=== PATIENT | female | born 1950 | race Caucasian/White ===

== ENCOUNTER 2021-02-27 12:41 | Outpatient (CLI) | payer MEDICARE, BC, SELFPAY ==
--- NOTE | 2021-02-27 12:47 | USCV_ITS ---
Fátima Hodge Age: 70 Gender: F : 1950 Exam Date: 02/27/2021 13:09 Ordering Phys: Faraz Ackerman Technologist: Álvaro Westfall Director Clinical Research [place] [facility] [place]: CLAUDICATION RIGHT LEFT Brachial 121.00 mmHg Brachial 112.00 mmHg Pressure (mmHg) Waveform Pressure (mmHg) Waveform 153.00 MOSAIC WORKER 150.00 149.00 DPA 144.00 1.26 Ankle/Brachial Index 1.24 103.00 Pre-Exercise Toe Pressure 115.00 0.85 Pre-Exercise Toe/Brachial Index 0.95 FINDINGS Normal resting ABIs bilaterally Normal resting TBIs bilaterally CONCLUSIONS No evidence of any significant arterial obstruction, based on the above findings. Dr Masha Musa MD [facility] (Electronically Signed) Final Date: 08 March 2021 06:46 S
== END 2021-02-27 12:42 | disposition home or self-care (01) ==
PROVIDERS: PCP Family Medicine; Visit Provider Family Medicine
DX: I73.9 Peripheral vascular disease, unspecified (principal); M79.10 Myalgia, unspecified site
CPT/HCPCS: 93922

== ENCOUNTER 2021-05-22 09:23 | Outpatient (CLI) | payer MEDICARE, BC, SELFPAY ==
--- NOTE | 2021-05-22 09:34 | CT_ITS ---
WS: [id number] CT NECK WITH CONTRAST HISTORY: Dysphagia. Chronic sinusitis. TECHNIQUE: Contiguous 5 mm axial images are performed through the neck with intravenous contrast. Sag ittal and coronal reformats are also submitted. All CT scans at [facility] use at least one o f these dose optimization techniques: automated exposure control; mA and/or kV adjustment per patient size (includes targeted exams where dose is matched to clinical indication); or iterative reconstruc tion. CONTRAST: CONTRAST: Omnipaque 300; 95 mL IV. DLP: 345.61 mGy.cm COMPARISON: None available. Patient swallowed in the middle of this examination. Nasopharynx, oropharynx, hypopharynx and larynx are unremarkable. No soft tissue masses or abnormal e nhancement. Torus tubarius and fossa of Rosenmuller and parapharyngeal fat are normal. No significant lymphadenopathy is identified. Bilateral thyroid nodules. Largest nodule measures 10 mm on the LEFT. Straightening and slight reversal the normal cervical lordosis. Disc space narrowing and desiccation most significant at C4-5 and C5-6. Visualized portions of the skull base demonstrate no abnormalities. Orbits and globes are within norm al limits. No soft tissue masses. Mild mucoperiosteal thickening in the sinus cavities. No air-fluid levels. Mastoid air cells are clear. CT/CT neck w con* [id number] IMPRESSION: 1. No neck mass or adenopathy. 2. Small bilateral thyroid nodules.
--- NOTE | 2021-05-22 09:34 | FL_ITS ---
WS: [id number] ESOPHAGRAM WITH FLUOROSCOPY HISTORY: Chronic sinusitis and dysphagia. COMPARISON: None available. FLUOROSCOPY TIME: 0.6 minutes. Esophagus and swallowing function: Patient swallowed the barium mixture without difficulty. No mucosa l lesions are identified. Osteophytes and soft tissue encroach into the posterior esophagus at the C6 -7 level. There is mild deviation of the esophagus but no significant limitation of swallowing. Mild cricopharyngeal spasm at the C5-6 level. Gastroesophageal reflux: None. Hiatal hernia: Intermittently visualized. FL/FL barium swallow [id number] IMPRESSION: 1. Small osteophytes and soft tissue encroach into the posterior esophagus at the C6-7 level. 2. Mild intermittent cricopharyngeal spasm. 3. No flow-limiting strictures are identified.
[2021-05-22 10:35] LABS: Blood Urea Nitrogen 13 mg/dL (8-23)
[2021-05-22] MEDS: iohexol 300 mg/mL 100 mL Btl IV (10:53)
== END 2021-05-22 09:24 | disposition home or self-care (01) ==
LOC: RAD 09:30
PROVIDERS: PCP Family Medicine; Visit Provider Specialist
DX: J32.8 Other chronic sinusitis (principal); E04.2 Nontoxic multinodular goiter; M25.78 Osteophyte, vertebrae
CPT/HCPCS: 70491; 74220; 82565; 84520

== ENCOUNTER 2021-06-05 10:25 | Outpatient (CLI) | payer MEDICARE, BC, SELFPAY ==
--- NOTE | 2021-06-05 13:58 | ECG_ITS ---
[facility] Test Date: 2021-06-05 Pat Name: Fátima Hodge Department: Room: Gender: Female Cook Ship: : 1950 Requested By: Thanh Pastor Order Number: [id number] Rojas MD: Masha Musa M.D. Measurements Intervals [place] Rate: 76 P: 64 AK: 173 QRS: 54 QRSD: 79 T: 52 QT: 346 QTc: 391 Interpretive Statements SINUS RHYTHM POSSIBLE LEFT ATRIAL ENLARGEMENT [-0.1mV P-WAVE IN V1/V2] SEPTAL MYOCARDIAL INFARCTION , PROBABLY OLD [40+ ms Q WAVE IN V1/V2] No previous ECG available for comparison Electronically Signed On 06-05-2021 17:20:51 DECK CADET by Masha Musa M.D. [email or web address] [email or web address]/[id number]
== END 2021-06-05 10:26 | disposition home or self-care (01) ==
PROVIDERS: PCP Family Medicine; Visit Provider Specialist
DX: R13.10 Dysphagia, unspecified (principal)
CPT/HCPCS: 93005

== ENCOUNTER 2022-02-07 11:27 | Outpatient (CLI) | payer MEDICARE, BC, SELFPAY ==
--- NOTE | 2022-02-07 11:38 | MM_ITS ---
WS: [id number] Bilateral screening 3D tomosynthesis digital mammogram, 02/07/2022 Clinical Data: SCREENING Comparison: 04/13/2020, 01/12/2010. Findings: The breast parenchymal pattern shows glandular tissue. No spiculated masses or clustered calcificatio ns are seen. There are no secondary signs of carcinoma. MM/[place] [id number] Impression: 1. Negative bilateral mammogram unchanged. 2. Recommend annual screening mammograms. BIRADS: 1-Negative FOLLOW UP: 1 Year Follow-up The CAD food and beverage checker was used.
== END 2022-02-07 11:28 | disposition home or self-care (01) ==
LOC: RAD 11:29
PROVIDERS: PCP Family Medicine; Visit Provider Nurse Practitioner Family
DX: Z12.31 Encounter for screening mammogram for malignant neoplasm of breast (principal)
CPT/HCPCS: 77063; 77067

== ENCOUNTER 2022-08-27 07:58 | Emergency (ER) | payer MEDICARE, OTHER, SELFPAY ==
[2022-08-27] VITALS (43 sets, daily range): BP systolic 103–156; BP diastolic 42–81; PULSE 62–79; RESP 12–25; TEMP 36.7; O2SAT 92–96; BMI 20.7
--- NOTE | 2022-08-27 08:01 | W.ED.CHESTPA ---
HPI - Chest Pain General: Chief Complaint: Chest Pain Stated Complaint: Chest Pain, SOB Time Seen by Provider: 08/27/22 08:01 Source: patient Mode of arrival: ambulatory History of Present Illness: 71-year-old female presents emergency room complaint of chest comfort. She states she is getting palpitations when she gets palpitations she will feel a sudden radiating chest pain that goes into her neck that last for the duration of a single palpation and then is gone she has no discomfort now she had several of these episodes at home she has not had any sustained chest pain shortness of breath diaphoresis or nausea. MD complaint: chest pain Onset (ago): hour(s) Timing of current episode: episodic Onset: during rest Pain location: substernal Pain radiation: neck Severity: mild Relieving factors: nothing Exacerbating factors: nothing Associated symptoms: Reports palpitations; Deny abdominal pain, diaphoresis, dyspnea, fever(s), leg edema, nausea, sense of impending doom, syncope or vomiting Treatment prior to arrival: none Review of Systems Const: Denies: fever(s), chills or diaphoresis ENMT: Denies: throat pain, ear or mastoid pain, nasal discharge or nasal congestion Card: Reports: chest pain, palpitations and irregular heart rhythm; Denies: syncope Resp: Denies: dyspnea GI: Denies: abdominal pain, nausea or vomiting : Denies: flank pain, difficulty voiding, dysuria, urinary frequency or urinary urgency Skin/Breast: Denies: rash or pruritus Physical Exam Const: GENERAL APPEARANCE: cooperative and comfortable ORIENTATION/CONSCIOUSNESS: Yes awake, Yes oriented to person, Yes oriented to place and Yes oriented to time HENMT: COMMON NORMALS: normocephalic, atraumatic and hearing grossly normal bilaterally HEAD & SCALP: normocephalic and atraumatic Resp: COMMON NORMALS: normal respiratory effort, No retractions, No use of accessory muscles and clear to auscultation bilaterally AUSCULTATION: clear to auscultation bilaterally Cardio: COMMON NORMALS: regular rate, regular rhythm and No murmurs present (Cardio) RATE: regular rate RHYTHM: regular rhythm GI: COMMON NORMALS: Soft to palpation and No hepatosplenomegaly present AUSCULTATION: Yes normoactive bowel sounds PALPATION: Yes Soft to palpation, No Tenderness to palpation present (GI), No Guarding due to palpation present (GI) and Yes No hepatosplenomegaly present Extremity: COMMON NORMALS: normal to inspection, capillary refill normal, no clubbing, cyanosis or edema, no calf tenderness and no pedal edema Neuro: SENSORIUM/ORIENTATION: Yes oriented to person, Yes oriented to place and Yes oriented to time Skin: COMMON NORMALS: no rashes or lesions noted GENERAL SKIN EXAM: no rashes or lesions noted Course Vital Signs: Vital signs: Vital Signs Temperature 98.1 F 08/27/22 08:04 Pulse Rate 69 08/27/22 11:30 Respiratory Rate 19 H 08/27/22 11:30 Blood Pressure 114/51 08/27/22 11:30 Pulse Oximetry 94 08/27/22 11:30 Oxygen Delivery Me thod Room Air 08/27/22 11:25 MDM - Chest Pain Medical Decision Making Patient reports chest discomfort but only when she has palpitation that lasts for just a second she will get a flash of discomfort that goes up into her neck as she gets a palpation and then its gone. No sustained discomfort EKGs chest x-rays normal no significant arrhythmias noted on monitor while she is in the emergency room we will discharge patient home set up for Holter monitor and Lexiscan sestamibi stress test continue her current medications follow-up with a primary care doctor or return to the emergency room if has any other symptoms. Medical Records I reviewed the patient's medical records. Lab Data I reviewed the patient's lab results. 08/27/22 08:11 08/27/22 08:11 Radiology Impressions Chest X-Ray 08/27/22 08:02 IMPRESSION: 1. Emphysematous changes. 2. No significant airspace consolidation concerning for pneumonia. Laboratory Results WBC 9.8 10^3/uL (4.0-10.0) 08/27/22 08:11 RBC 5.41 10^6/uL (4.1-5.3) H 08/27/22 08:11 Hgb 15.3 g/dL (11.5-15.3) 08/27/22 08:11 Hct 47.8 % (37.0-47.0) H 08/27/22 08:11 MCV 88.4 fl (81-99) 08/27/22 08:11 MCH 28.3 pg (28.0-34.0) 08/27/22 08:11 MCHC 32.0 g/dL (30.0-36.0) 08/27/22 08:11 RDW 14.1 % (12.1-15.1) 08/27/22 08:11 Plt Count 204 10^3/cmm (130-400) 08/27/22 08:11 MPV 11.4 fL (7.4-10.4) H 08/27/22 08:11 Neut % (Auto) 67.5 % 08/27/22 08:11 Lymph % (Auto) 23.3 % 08/27/22 08:11 Gillespie % (Auto) 7.4 % 08/27/22 08:11 Eos % (Auto) 1.0 % 08/27/22 08:11 Baso % (Auto) 0.4 % 08/27/22 08:11 Neut # (Auto) 6.61 10^3/uL (1.8-7.7) 08/27/22 08:11 Lymph # (Auto) 2.3 10^3/uL (0.8-4.8) 08/27/22 08:11 Gillespie # (Auto) 0.7 10^3/uL (0.2-0.9) 08/27/22 08:11 Eos # (Auto) 0.1 10^3/uL (0.0-0.8) 08/27/22 08:11 Baso # (Auto) 0.0 10^3/uL (0.0-0.1) 08/27/22 08:11 Nucleated RBC % (auto) 0 % 08/27/22 08:11 Nucleated RBCs # 0.0 /100WBC 08/27/22 08:11 Sodium 142 mmol/L (136-145) 08/27/22 08:11 Potassium 3.7 mmol/L (3.5-5.1) 08/27/22 08:11 Chloride 105 mmol/L (98-107) 08/27/22 08:11 Carbon Dioxide 26 mmol/L (22-29) 08/27/22 08:11 Anion Gap 14.7 (5-19) 08/27/22 08:11 BUN 17 mg/dL (8-23) 08/27/22 08:11 Creatinine 0.5 mg/dL (0.5-0.9) 08/27/22 08:11 GFR Calculation Not Reportable 08/27/22 08:11 Glucose 98 mg/dL (65-115) 08/27/22 08:11 Calculated Osmolality 296 mOsm/kg (285-295) H 08/27/22 08:11 Calcium 9.4 mg/dL (8.5-10.5) 08/27/22 08:11 Total Bilirubin 0.4 mg/dL (0.15-1.2) 08/27/22 08:11 AST 12 U/L (0-32) 08/27/22 08:11 ALT 10 U/L (0-33) 08/27/22 08:11 Alkaline Phosphatase 113 U/L (35-105) H 08/27/22 08:11 Troponin T Baseline 6 ng/L (0-10) 08/27/22 08:11 Troponin T 120 Minute 6.49 ng/L (0-10) 08/27/22 10:03 Delta Troponin T 0.49 ABS# (0-10) 08/27/22 10:03 Total Protein 7.3 g/dL (6.6-8.7) 08/27/22 08:11 Albumin 4.6 g/dL (3.5-5.2) 08/27/22 08:11 Globulin 2.7 g/dL (1.3-4.6) 08/27/22 08:11 Urine Color Straw (Yellow) 08/27/22 09:43 Urine Appearance Clear (CLEAR) 08/27/22 09:43 Urine pH 5 (5-7) 08/27/22 09:43 Ur Specific [place] 1.010 (1.005-1.030) 08/27/22 09:43 Urine Protein Neg (Negative) 08/27/22 09:43 Urine Glucose (UA) Norm (Normal) 08/27/22 09:43 Urine Ketones Negative (Negative) 08/27/22 09:43 Urine Blood Neg (Negative) 08/27/22 09:43 Urine Nitrate Negative (Negative) 08/27/22 09:43 Urine Bilirubin Neg (Negative) 08/27/22 09:43 Urine Urobilinogen Norm mg/dL (Negative) 08/27/22 09:43 Ur Leukocyte Esterase Negative (Negative) 08/27/22 09:43 Discharge Plan Discharge Patient Disposition: Home Clinical Impression: Atypical chest pain, Heart palpitations Condition: Stable Prescriptions: No Action losartan 50 mg tablet 50 mg PO DAILY zinc acetate 50 mg (zinc) Capsule 50 mg PO DAILY citalopram 10 mg tablet 10 mg PO DAILY omeprazole 40 mg capsule,delayed release(DR/EC) 40 mg PO DAILY lorazepam 1 mg tablet 1 mg PO DAILY PRN (Reason: Anxiety) vitamin E 268 mg (400 unit) Capsule 268 mg PO DAILY Discharge Orders: Discharge ED (Routine); Ordered 08/27/22 Ordered By: Rahul Stringer Referrals: Faraz Ackerman [Primary Care Provider] - Discharge Diet: Usual diet Discharge Activity: Limit activity as instructed Patient Instructions: Opioid Safety, Pain Management Activity Restrictions/Additional Instructions: You were seen today for palpitations and atypical chest discomfort. Recommend that you avoid any exertional activities. We will set you up for an outpatient 48-hour Holter monitor and a cardiac stress test. Coding Level of Care Code ED Watch Assembly Inspector for Angelica Hays
--- NOTE | 2022-08-27 08:02 | XRR_ITS ---
PROCEDURE INFORMATION: Exam: XR Chest Exam date and time: 08/27/2022 8:10 AM Age: 71 years old Clinical indication: Cough; Additional info: Dyspnea/cough TECHNIQUE: Imaging protocol: Radiologic exam of the chest. Views: 1 view. COMPARISON: CT neck w con* [id number] 05/22/2021 10:49 AM FINDINGS: Lungs: Emphysematous changes. No significant airspace consolidation concerning for pneumonia. Pleural spaces: No pneumothorax. No pleural effusion. Heart/Mediastinum: The cardiomediastinal silhouette is within normal limits. Bones/joints: Unremarkable. XR/XR chest 1V portable [id number] IMPRESSION: 1. Emphysematous changes. 2. No significant airspace consolidation concerning for pneumonia.
[2022-08-27 08:27] LABS: Basophils % 0.4 %; Eosinophils # 0.1 10^3/uL (0.0-0.8); Hematocrit 47.8 % (37.0-47.0); Hemoglobin 15.3 g/dL (11.5-15.3); Lymphocytes # 2.3 10^3/uL (0.8-4.8); Lymphocytes % 23.3 %; Mean Corpuscular Hemoglobin 28.3 pg (28.0-34.0); Mean Corpuscular Volume 88.4 fl (81-99); Mean Platelet Volume 11.4 fL (7.4-10.4); Monocytes # 0.7 10^3/uL (0.2-0.9); Monocytes % 7.4 %; Neutrophils # 6.61 10^3/uL (1.8-7.7); Neutrophils % 67.5 %; Nucleated Red Blood Cells % 0 %; Platelet Count 204 10^3/cmm (130-400); Red Blood Count 5.41 10^6/uL (4.1-5.3); Red Cell Distribution Width 14.1 % (12.1-15.1); White Blood Count 9.8 10^3/uL (4.0-10.0)
--- NOTE | 2022-08-27 08:43 | ECG_ITS ---
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 Measurements Intervals [place] Rate: 70 P: 60 LA: 173 QRS: 56 QRSD: 90 T: 56 QT: 383 QTc: 414 Interpretive Statements SINUS RHYTHM Compared to ECG 06/05/2021 11:13:07 Myocardial infarct finding no longer present Electronically Signed On 08-27-2022 16:29:21 CDT by Moshe Abdullahi M.D. [id number] f
[2022-08-27 08:52] LABS: Alanine Aminotransferase 10 U/L (0-33); Albumin Level 4.6 g/dL (3.5-5.2); Alkaline Phosphatase 113 U/L (35-105); Anion Gap 14.7 (5-19); Aspartate Amino Transferase 12 U/L (0-32); Blood Urea Nitrogen 17 mg/dL (8-23); Calcium 9.4 mg/dL (8.5-10.5); Carbon Dioxide 26 mmol/L (22-29); Chloride 105 mmol/L (98-107); Globulin 2.7 g/dL (1.3-4.6); Glucose 98 mg/dL (65-115); Osmolality Calculated 296 mOsm/kg (285-295); Potassium 3.7 mmol/L (3.5-5.1); Sodium 142 mmol/L (136-145); Total Bilirubin 0.4 mg/dL (0.15-1.2); Total Protein 7.3 g/dL (6.6-8.7)
[2022-08-27 09:12] LABS: Troponin(5th) Baseline 6 ng/L (0-10)
[2022-08-27 09:50] LABS: Add Urine Microscopic? NO; Charge for UA Resulting for Rev
[2022-08-27 10:05] LABS: Bilirubin Urine Neg (Negative); Blood Urine Neg (Negative); Glucose Urine UA Norm (Normal); Ketones Urine Negative (Negative); Leukocyte Esterase Urine Negative (Negative); Nitrate Urine Negative (Negative); Protein Urine Neg (Negative); Urine Appearance Clear (CLEAR); Urine Color Straw (Yellow); Urobilinogen Urine Norm (Negative); pH Urine 5 (5-7)
[2022-08-27 10:38] LABS: Troponin 5 2HR 6.49 ng/L (0-10)
[2022-08-27 10:48] LABS: Troponin 5 2HR Delta 0.49 ABS# (0-10)
--- NOTE | 2022-08-27 14:31 | PC.SOCIAL ---
Addendum entered by Glenda Kingston 09/04/22 10:32: Patient has an appointment scheduled for Sunday, September 11, 2022 at 10:00 at [facility] for a halter monitor. Original Note: Orders for stress test and holter monitor faxed to centralized scheduling with results to Faraz Ackerman.
== END 2022-08-27 11:42 | disposition home or self-care (01) ==
PROVIDERS: Emergency Provider Family Medicine; PCP Family Medicine
DX: R07.89 Other chest pain (principal); R00.2 Palpitations
CPT/HCPCS: 36415; 71045; 80053; 81003; 84484; 85025; 93005; 99285

== ENCOUNTER → 2022-09-19 09:19 | Outpatient (BNVA) | payer MEDICARE, OTHER, SELFPAY | PROVIDERS: PCP Family Medicine; Referring Provider Registered Nurse; Visit Provider Orthopaedic Surgery | DX: M25.531 Pain in right wrist (principal); R20.0 Anesthesia of skin; R20.2 Paresthesia of skin | CPT/HCPCS: 73110; 99204 ==

== ENCOUNTER 2022-09-25 07:38 | Outpatient (RCR) | payer MEDICARE, OTHER, SELFPAY | END 2022-10-05 23:59 | disposition home or self-care (01) | LOC: SOT 07:38 | PROVIDERS: PCP Family Medicine; Visit Provider Orthopaedic Surgery | DX: M25.531 Pain in right wrist (principal) | CPT/HCPCS: 97022; 97110; 97166; 97530; G0283 ==

== ENCOUNTER 2022-10-06 06:00 | Outpatient (RCR) | payer MEDICARE, OTHER, SELFPAY | END 2022-11-05 23:59 | disposition home or self-care (01) | LOC: SOT 06:00 | PROVIDERS: PCP Family Medicine; Visit Provider Orthopaedic Surgery | DX: M25.532 Pain in left wrist (principal) | CPT/HCPCS: 97022; 97110; G0283 ==

== ENCOUNTER → 2022-10-22 09:18 | Outpatient (BNVA) | payer MEDICARE, OTHER, SELFPAY | PROVIDERS: Visit Provider Student in an Organized Health Care Education/Training Program | DX: M25.532 Pain in left wrist (principal); R20.0 Anesthesia of skin; R20.2 Paresthesia of skin; M18.11 Unilateral primary osteoarthritis of first carpometacarpal joint, right hand; Z46.89 Encounter for fitting and adjustment of other specified devices | CPT/HCPCS: 20600; 20610; 73110; 97760; 99204; J3301; J3490; L3924 ==

== ENCOUNTER 2022-10-22 13:54 | Outpatient (CLI) | payer MEDICARE, OTHER, SELFPAY | END 2022-10-22 13:55 | disposition home or self-care (01) | LOC: SPT 13:55 | PROVIDERS: Visit Provider Student in an Organized Health Care Education/Training Program | DX: Z46.89 Encounter for fitting and adjustment of other specified devices (principal); M18.11 Unilateral primary osteoarthritis of first carpometacarpal joint, right hand; M25.532 Pain in left wrist; R20.0 Anesthesia of skin; R20.2 Paresthesia of skin | CPT/HCPCS: 97760; 99204; L3924 ==

== ENCOUNTER 2022-10-23 06:00 | Outpatient (RCR) | payer MEDICARE, OTHER, SELFPAY | END 2022-11-05 23:59 | disposition home or self-care (01) | LOC: SOT 06:00 | PROVIDERS: Visit Provider Nurse Practitioner Family | DX: M25.532 Pain in left wrist (principal) | CPT/HCPCS: 97022; 97110; 97165; G0283 ==

== ENCOUNTER 2022-11-06 06:00 | Outpatient (RCR) | payer MEDICARE, OTHER, SELFPAY | END 2022-12-06 23:59 | disposition home or self-care (01) | LOC: SOT 06:00 | PROVIDERS: PCP Family Medicine; Visit Provider Nurse Practitioner Family | DX: M25.532 Pain in left wrist (principal) | CPT/HCPCS: 97022; 97110; G0283 ==

== ENCOUNTER → 2022-11-13 13:34 | Outpatient (BNVA) | payer MEDICARE, OTHER, SELFPAY | PROVIDERS: PCP Family Medicine; Visit Provider Internal Medicine Cardiovascular Disease | DX: R07.89 Other chest pain (principal); R00.2 Palpitations | CPT/HCPCS: 99204 ==

== ENCOUNTER → 2022-12-14 10:22 | Outpatient (BNVA) | payer MEDICARE, OTHER, SELFPAY | PROVIDERS: PCP Family Medicine; Visit Provider Internal Medicine Cardiovascular Disease | DX: F41.9 Anxiety disorder, unspecified (principal) | CPT/HCPCS: 99213 ==

== ENCOUNTER → 2023-05-22 13:09 | Outpatient (BNVA) | payer MEDICARE, OTHER, SELFPAY | PROVIDERS: PCP Family Medicine; Visit Provider Nurse Practitioner Family | DX: R00.2 Palpitations (principal); R09.89 Other specified symptoms and signs involving the circulatory and respiratory systems | CPT/HCPCS: 99214 ==

== ENCOUNTER 2023-05-28 07:11 | Outpatient (CLI) | payer MEDICARE, OTHER, SELFPAY ==
--- NOTE | 2023-05-28 | ECG_ITS ---
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 Interpretive Statements NAME OF STUDY: EXERCISE SESTAMIBI STRESS TEST INDICATION: Labile BP; Angina PROCEDURE: The baseline electrocardiogram showed normal sinus rhythm with normal ST-Ts. At the baseline, the patient's blood pressure was 143/63 mm Hg with a heart rate of 75. The patient exercised for 4 minutes and 31 seconds on a standard [place] protocol. Patient attained a maximum heart rate of 130 beats per minute(89% of the maximum predicted heart rate) with a blood pressure at the peak exercise of 207/87 mm Hg. The EKG at the peak exercise revealed no significant changes. Patient did [not have any chest pain . Occasional PVCs were noted on the monitor Sestamibi was injected 1 minute prior to the peak exercise During the recovery phase, there were no new changes. Blood pressure at the end of the recovery phase was 165/60 mm Hg with a heart rate of 81 per minute. CONCLUSION: 1. No significant EKG changes with the treadmill exercise 2. No exercise-induced chest pain . Some exercise-induced PVCs are noted on the monitor. 3. Slightly impaired exercise tolerance, attained a maximum of 7.0 METs 4. Hypertensive response to exercise 5. Sestamibi/Sestamibi perfusion results pending; see separate report. Electronically Signed On 06-01-2023 14:46:35 INFORMATION SECURITY DIRECTOR by Masha Musa M.D. [id number]
[2023-05-28 07:37] VITALS: BMI 21.2
--- NOTE | 2023-05-28 07:38 | NMCV_ITS ---
NM dacia perf SPECT r/s* [id number] Fátima Hodge Age: 72 Gender: F : 1950 Exam Date: 05/28/2023 07:45 Ordering Phys: Hetal Al Technologist: JAYLEN Watkins Exam Location: [facility] Indications: PALPITATIONS STRESS TEST Please see separate stress test report in Ephiphany for full findings IMAGE PROTOCOL Rest/Stress 1 Exercise Day Radiopharmaceutical Dose (mCi) Administration Site Administered by Rest: Tc-99m 10.4 IV JAYLEN Connell Sestamibi Stress:Tc-99m 32.3 IV JAYLEN Watkins Sestamiarianna Rest: 28-May-2023 60 Discovery 630 Stress: 28-May-2023 15 Discovery 630 Radiopharmaceutical was injected at 86 % maximum heart rate. Images obtained in supine and prone position. SPECT RESULTS Technical Quality: Excellent Raw Data Analysis: Normal Image Corrections: No attenuation or motion correction applied Summed Stress Score: 1 Summed Rest Score: 4 Summed Difference Score: 0 PERFUSION FINDINGS Fairly uniform myocardial tracer uptake with no significant perfusion abnormalities. FUNCTIONAL RESULTS (calculated via Gated SPECT) Stress Image LV EF (%): 91 Stress EDV (mL):68 TID: 0.91 Stress ESV (mL):6 FUNCTIONAL FINDINGS: Segmental wall motion analysis revealing no gross wall motion abnormalities IMPRESSIONS 1. Myocardial perfusion imaging revealing uniform myocardial tracer uptake with no significant perfusion abnormalities. 2. Normal LV ejection fraction 91% 3. LV wall motion analysis revealing no gross wall motion abnormalities. 4. Normal LV volume Low probability for coronary ischemia, based on the above findings Dr Masha Musa MD [facility] (Electronically Signed) Final Date: 28 May 2023 21:01 S
[2023-05-28 08:50] VITALS: BP 165/60; PULSE 87
== END 2023-05-28 07:12 | disposition home or self-care (01) ==
PROVIDERS: PCP Family Medicine; Visit Provider Nurse Practitioner Family
DX: R09.89 Other specified symptoms and signs involving the circulatory and respiratory systems (principal); I20.9 Angina pectoris, unspecified
CPT/HCPCS: 36415; 78452; 93017; A9500

== ENCOUNTER 2023-05-29 09:18 | Outpatient (CLI) | payer MEDICARE, OTHER, SELFPAY ==
--- NOTE | 2023-05-29 09:45 | USCV_ITS ---
Fátima Hodge Age: 72 Gender: F : 1950 Exam Date: 05/29/2023 09:31 Ordering Phys: Hetal Al Technologist: KAMRYN [place] [facility] [place]: Right Carotid Bruit Risk Factors: Previous Vascular Surgery: Right Brachial BP: / Left Brachial BP: / Right Left Velocity (cm/s) Spectral Plaque Velocity (cm/s) Spectral Plaque Syst/Diast Broadening Syst/Diast Broadening 98.90/ 22.30 Prox CCA 105.70/ 29.00 86.20/ 25.90 Mid CCA 98.40 / 29.00 78.90/ 22.30 Distal CCA 92.90 / 29.00 71.60/ 20.40 Prox ICA 89.30 / 25.40 101.50/25.90 Mid ICA 118.50/ 35.50 80.70/ 25.90 Distal ICA 103.90/ 34.50 102.60 ECA 107.50 Antegrade Vertebral Antegrade 78.90/ 16.80 cm/s 80.10/ 21.70 cm/s Tri Subclavian Tri 169.4 200.3 0 0 CONCLUSIONS Right ICA stenosis <50%. Left ICA stenosis <50%. Intimal thickening in the common carotid arteries and internal carotid arteries bilaterally. Normal antegrade Doppler flow noted in the right vertebral artery. Normal antegrade Doppler flow noted in the left vertebral artery. Montana Hernandez MD (Electronically Signed) Final Date: 30 May 2023 10:19 S
== END 2023-05-29 09:19 | disposition home or self-care (01) ==
LOC: RAD 09:18
PROVIDERS: PCP Family Medicine; Visit Provider Nurse Practitioner Family
DX: I65.23 Occlusion and stenosis of bilateral carotid arteries (principal)
CPT/HCPCS: 93880

== ENCOUNTER → 2023-06-14 10:16 | Outpatient (BNVA) | payer MEDICARE, OTHER, SELFPAY | PROVIDERS: PCP Family Medicine; Visit Provider Internal Medicine Cardiovascular Disease | DX: R00.2 Palpitations (principal); F41.9 Anxiety disorder, unspecified | CPT/HCPCS: 99213 ==

== ENCOUNTER → 2023-11-07 11:45 | Outpatient (BNVA) | payer MEDICARE, OTHER, SELFPAY | PROVIDERS: PCP Family Medicine; Visit Provider Internal Medicine Cardiovascular Disease | DX: R00.2 Palpitations (principal); R09.89 Other specified symptoms and signs involving the circulatory and respiratory systems; F41.9 Anxiety disorder, unspecified; I10 Essential (primary) hypertension; Z72.0 Tobacco use | CPT/HCPCS: 99213 ==

== ENCOUNTER → 2024-01-31 11:18 | Outpatient (BNVA) | payer MEDICARE, OTHER, SELFPAY | PROVIDERS: PCP Family Medicine; Visit Provider Internal Medicine Cardiovascular Disease | DX: I49.3 Ventricular premature depolarization (principal); I10 Essential (primary) hypertension; R00.2 Palpitations; Z72.0 Tobacco use | CPT/HCPCS: 99204 ==

== ENCOUNTER 2024-04-14 07:39 | Outpatient (CLI) | payer MEDICARE, OTHER, SELFPAY ==
--- NOTE | 2024-04-14 08:30 | USCV_ITS ---
Fátima Hodge Age: 73 Gender: F : 1950 Exam Date: 04/14/2024 07:48 Ordering Phys: Hetal Al Technologist: R [place] [facility] [place] Indication: AAA screening HISTORY: Diameter (cm) AP x Transverse x Length Velocity (cm/s) Waveform Prox Aorta: 1.70 x 1.88 x 84.80 Triphasic Mid Aorta: 1.32 x 1.62 x 108.50 Triphasic Distal Aorta: 1.22 x 1.47 x 77.70 Triphasic Right Iliac Prox: 0.69 x 0.78 x 175.50 Triphasic Left Iliac Prox: 0.71 x 0.64 x 167.60 Triphasic Stent Prox Landing x x Aneurysmal Sac Max x x Lt Lat Sac Dim Rt Lat Sac Dim Stent Dist Landing x x Right Iliac Stent x x Left Iliac Stent x x Right Renal Art Left Renal Art FINDINGS: Comparison: none available. No evidence of abdominal aortic or bilateral iliac aneurysm. Ectatic abdominal aorta with evidence of atherosclerotic plaque noted. CONCLUSIONS No evidence of abdominal aortic aneurysm. Dr. Connie Ac DO (Electronically Signed) Final Date: 15 April 2024 06:57 S
== END 2024-04-14 07:40 | disposition home or self-care (01) ==
LOC: RAD 07:40
PROVIDERS: PCP Family Medicine; Visit Provider Nurse Practitioner Family
DX: R00.2 Palpitations (principal); Z72.0 Tobacco use; I10 Essential (primary) hypertension; Z82.49 Family history of ischemic heart disease and other diseases of the circulatory system; I77.811 Abdominal aortic ectasia; I70.0 Atherosclerosis of aorta; I49.3 Ventricular premature depolarization
CPT/HCPCS: 76706; 99214

== ENCOUNTER 2024-04-23 07:23 | Outpatient (CLI) | payer MEDICARE, OTHER, SELFPAY ==
--- NOTE | 2024-04-23 | ECG_ITS ---
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 The perfusion scan will be documented separately. DATA: Baseline heart rate was 62 beats per minute. Baseline blood pressure was 136/57 millimeters of mercury. Target heart rate was 145. Maximum heart rate achieved was 92. which was 63 % of the predicted target heart rate. Maximum blood pressure was 144/61 millimeters of mercury. The reason for ending the test was completion of the protocol. The patient did not experience any symptoms. ELECTROCARDIOGRAM: BASELINE: Sinus rhythm. Normal axis. Old anteroseptal myocardial infarction, otherwise, no ST-T changes suggestive of ischemia noted. No arrhythmia noted. EXERCISE: After Lexiscan injection, no ST-T changes suggestive of ischemic noted. No arrhythmia noted. CONCLUSION: Please note due to baseline abnormality of the EKG specificity and sensitivity of the EKG portion of LexiScan MIBI stress test will be low 1. EKG not suggestive of ischemia 2. Lexiscan injection unremarkable. 3. Perfusion scan will be documented separately. Electronically Signed On 05-11-2024 22:13:38 STEREOPTIC PROJECTION TOPOGRAPHER by EVIN MILLER [id number]
[2024-04-23 07:58] VITALS: BMI 21.6
--- NOTE | 2024-04-23 08:17 | NMCV_ITS ---
NM dacia perf SPECT r/s* [id number] Cindy Hodgei Age: 73 Gender: F : 1950 Exam Date: 04/23/2024 08:25 Ordering Phys: Hetal Al Technologist: JAYLEN Hayden Exam Location: [facility] Indications: cp STRESS TEST Please see separate stress test report in Ephiphany for full findings IMAGE PROTOCOL Rest/Stress 1 Lexiscan Day Radiopharmaceutical Dose (mCi) Administration Site Administered by Rest: Tc-99m 10.5 IV Danielle Florence, PLANT PACKER Sestamibi Stress:Tc-99m 32.9 IV Danielle Avinagle, PLANT PACKER Sestamibi Rest: 23-Apr-2024 60 Discovery 630 Stress: 23-Apr-2024 30 Discovery 630 0.4mg Lexiscan. Images obtained in supine and prone position. SPECT RESULTS Technical Quality: Good Raw Data Analysis: Normal Image Corrections: No attenuation or motion correction applied Summed Stress Score: 7 Summed Rest Score: 8 Summed Difference Score: 0 PERFUSION FINDINGS Medium sized area of patchy decreased tracer uptake noted in mid to distal anterior and basal to mid inferior wall on rest images which improved significantly over stress images suggestive of artifact. Small area of fixed perfusion defect noted in apical inferior wall suggestive of possible apical thinning artifact FUNCTIONAL RESULTS (calculated via Gated SPECT) Stress Image LV EF (%): 84 Stress EDV (mL):74 TID: 1.03 Stress ESV (mL):12 FUNCTIONAL FINDINGS: There is normal left ventricular systolic function. IMPRESSIONS This study is negative for ischemia and low probability for obstructive coronary artery disease. Rosales Almaguer MD (Electronically Signed) Final Date: 23 April 2024 15:59 S
[2024-04-23] MEDS: regadenoson 0.4 Mg/5 ml Syringe IVP (09:03)
[2024-04-23 09:17] VITALS: BP 136/48; PULSE 83
== END 2024-04-23 07:24 | disposition home or self-care (01) ==
LOC: CDL 07:24
PROVIDERS: PCP Family Medicine; Visit Provider Nurse Practitioner Family
DX: R07.9 Chest pain, unspecified (principal)
CPT/HCPCS: 36415; 78452; 93017; 96374; A9500; J2785

== ENCOUNTER 2024-05-21 05:33 | Outpatient (CLI) | payer MEDICARE, OTHER, SELFPAY ==
[2024-05-21 06:00] VITALS: BP 163/86; PULSE 62; RESP 16; TEMP 36.7; O2SAT 95
[2024-05-21] MEDS: diphenhydrAMINE 50 mg Capsule PO (06:00)
[2024-05-21 06:02] LABS: Basophils % 0.4 %; Eosinophils # 0.3 10^3/uL (0.0-0.8); Eosinophils % 3.6 %; Hematocrit 48.1 % (36-47); Lymphocytes # 1.9 10^3/uL (0.8-4.8); Mean Corpuscular HGB Conc 32.6 g/dL (30-55); Mean Corpuscular Hemoglobin 29.1 pg (27-33); Mean Corpuscular Volume 89.1 fl (85-98); Mean Platelet Volume 11.5 fL (7.4-10.4); Monocytes # 0.6 10^3/uL (0.2-0.9); Monocytes % 7.9 %; Neutrophils # 4.47 10^3/uL (1.8-7.7); Neutrophils % 61.7 %; Nucleated Red Blood Cells % 0 %; Platelet Count 192 10^3/cmm (157-399); Red Cell Distribution Width 13.6 % (12.1-15.1); White Blood Count 7.24 10^3/uL (3.29-11.43)
[2024-05-21 06:21] LABS: Anion Gap 14.8 (5-19); Blood Urea Nitrogen 16 mg/dL (8-23); Calcium 9.7 mg/dL (8.5-10.5); Carbon Dioxide 28 mmol/L (22-29); Chloride 99 mmol/L (98-107); Glucose 100 mg/dL (65-115); Osmolality Calculated 287 mOsm/kg (285-295); Potassium 3.8 mmol/L (3.5-5.1); Sodium 138 mmol/L (136-145)
[2024-05-21 06:37] VITALS: BMI 21.2
--- NOTE | 2024-05-21 09:40 | SUR.PREOP ---
RESCHEDULE NOTE MD discussion with the patient. Due to multiple emergencies and subsequent delays in procedure time the procedure was rescheduled to 7 am saturday (05/25/24) with a 6 am check in time. Patient aware of the changes and is infomed to do the same preparation then as for today's exam. IV removed. Discharge with belongings in hand and in stable condition.
== END 2024-05-21 05:34 | disposition home or self-care (01) ==
PROVIDERS: PCP Family Medicine; Visit Provider Internal Medicine Cardiovascular Disease
DX: I20.0 Unstable angina (principal); Z53.9 Procedure and treatment not carried out, unspecified reason
CPT/HCPCS: 80048; 85025; J1644; J2250; J3010; J3490; J7030; Q0163

== ENCOUNTER 2024-05-25 05:39 | Outpatient (CLI) | payer MEDICARE, OTHER, SELFPAY ==
[2024-05-25] VITALS (15 sets, daily range): BP systolic 96–151; BP diastolic 50–94; PULSE 55–67; RESP 14–18; TEMP 36.6; O2SAT 93–97
--- NOTE | 2024-05-25 06:00 | XACV_ITS ---
Exam Room: 2 Ht: 173 cm Wt: 64 kg BSA: 1.74 m2 Gender: Female : 1950 Any Known Allergies: Other Exam Priority: Routine Procedure(s): Procedure Description: Diagnostic procedure Procedure Description: Left Heart Catheterization Procedure Description: Left ventriculography Procedure Description: Coronary Angiography KENNEDYTripp GUEVARA; Diagnostic Cath Status: Elective Diagnostic Findings * No disease noted in the Left Main, Left Anterior Descending, Right, or Circumflex coronary arteries. RCA has luminal irregularities without significant stenosis. * Coronary angiography shows right dominance. Conclusions 1. No disease noted in the Left Main, Left Anterior Descending, Right, or Circumflex coronary arteries. RCA has luminal irregularities without significant stenosis. 2. All hays are normal. 3. Normal left ventricular systolic function. Ejection fraction of 60%. Recommendations * Continue current medical management and risk factor modification. Diagnostic RX Recommendation: medical therapy and/or counseling Ventriculography Ejection Fraction: 60.0 % Pressures Phase:Rest AO : 137 / 54 ( 86 ) @ 8:00:00 AM 107 / 52 ( 75 ) @ 8:02:00 AM 143 / 54 ( 90 ) @ 8:08:00 AM 142 / 54 ( 90 ) @ 8:08:00 AM LV : 146 / -5 / 16 @ 8:07:00 AM 147 / -4 / 20 @ 8:08:00 AM 145 / -3 / 20 @ 8:08:00 AM Valves Phase:DefaultPhase AV : 1.0 @ 8:14:59 AM AV Mean Gradient: 0.0 @ 8:14:59 AM Clinical Evaluation EBL: 5mL-10mL Procedural Details Pre-Procedure Time Out. Identified patient by full name and date of as verbalized by the patient/guarantor. Does the consent match the physician's order: Yes. Accurate & Complete Informed Consent: Yes. Inpatient/Outpatient History & Physical on Chart: Yes. If H&P is completed, is and addenduem needed: No; If yes, is the addendum complete: N/A. Visualize and Verify Site with Patient/Guarantor: N/A. Relevant Radiology Images available: Yes. Pre-op teaching completed and patient verbalized understanding. The risks, benefits, and alternatives of sedation and/or procedure were discussed by physician. The patient agrees to continue. Procedure started. [facility] Clinical Fraility Score: 3: Managing Well. [employer] Indications: Other. Chest Pain Symptom Assessment: Typical Angina Symptoms. Correct patient, site and procedure confirmed by cath team. Current diagnosis: Chest Pain. PERRLA. Strong, equal hand pediatric physiatrist bilaterally. Lungs clear x 5 lobes. IV Site on Arrival: 20 gauge in the left anticubital. Physician arrived. IV Fluids: 0.9% NaCl at KVO. 0 mL infused prior to labor operator. Pre Procedural Pulses: bilateral dorsalis pedis was 3+. Pre Procedural Pulses: bilateral posterior tibial was 3+. Pre Procedural Pulses: bilateral radial was 3+. Oxygen started at 2liters/min via nasal canula. right groin was prepped with chloroprep then draped in the usual sterile fashion. right radial was prepped with chloroprep then draped in the usual sterile fashion. Baseline sample Acquired. HR: 61 BPM. Physician scrubbed in. Immediate Pre-Procedure Time Out. Correct Patient: Yes; Correct Procedure: Yes; Correct Site: Yes; Correct Patient Position: Yes; Correct Supplies: Yes; Dried Flammable Prep: Yes; Blood Products Available: N/A;. Lidocaine 1% infiltrated to the right radial. Arterial access obtained. A 5 kenyan TIG catheter in over wire. Wire out. Contrast hand injected through the catheter. Glidewire inserted. Multiple views taken of left coronary artery. Catheter redirected to the RCA. Multiple views taken of right coronary artery. Catheter removed over the exchange wire. A 5 kenyan Angled Pig catheter in over wire. EDP Sample taken: LV 146/-6,16; HR: 62 BPM; SpO2: 97%. LV gram performed in ALLAN @ 10 mL/second for a total of 30 mL. EDP Sample taken: LV 147/-5,20; HR: 66 BPM; SpO2: 97%. Pullback taken: LV 145/-4,20; AO 143/54(90); Mean: 0mmHg, Peak to Peak: 1mmHg, SEP: 17sec/min; HR: 65 BPM; SpO2: 97%. Catheter removed over the exchange wire. A TR Band was successful obtaining hemostatsis at the Right Radial artery insertion site. Post Procedure: Pulses reassessed and unchanged. PERRLA. Strong, equal hand pediatric physiatrist bilaterally. No VTE prophylaxis required. Vital chart was stopped. Medication's Wasted: Lidocaine 1% = 18 mL. Total IV fluids: 30 mL. Medication's Wasted: Nitro = 49.8 mcg. Medication's Wasted: Heparin = 1000 units. Post-op diagnosis: Non-obstructive CAD. Complications: None. Estimated blood loss: 5mL-10mL. Responsiveness - Normal response to verbal stimuli; alert and oriented, PERRLA. Airway - Unaffected, no intervention required; spontaneous ventilation. Circulation: W/N/L, pulses unchanged. Nausea/Vomiting: No. Procedure completed. Patient transferred by wheelchair to CPRU. Access Site Site: Right Radial artery Sheath Size: 6 Fr Hemostasis Method: TR Band Hemostasis Success: Successful Procedure Medications Start: 7:37 AM Stop: 7:37 AM Medication: Versed Amount: 1 mg Route: I.V. Start: 7:37 AM Stop: 7:37 AM Medication: Fentanyl Amount: 50 mcg Route: I.V. Start: 7:49 AM Stop: 7:49 AM Medication: Versed Amount: 1 mg Route: I.V. Start: 7:55 AM Stop: 7:55 AM Medication: Nitrogylcerin Amount: 200 mcg Route: I.A. Start: 7:58 AM Stop: 7:58 AM Medication: Fentanyl Amount: 25 mcg Route: I.V. Start: 7:59 AM Stop: 7:59 AM Medication: Heparin Amount: 5000 units Route: I.V. Start: 8:08 AM Stop: 8:08 AM Medication: Fentanyl Amount: 25 mcg Route: I.V. I, the attending physician, have reviewed and verified all procedure medications. Yes, all medications given per verbal order History/Risk Factors Hypertension: Yes Dyslipidemia: No Peripheral Arterial Disease (PAD): No Myocardial Infarction ([place]): No Obesity: No Renal Disease: No Tobacco Use: Current/Recent(w/in 1 year) Prior Interventions PCI: No CABG: No Valve Surgery: No Report Signatures Finalized by Rosales Almaguer MD on 06/08/2024 08:25 PM
[2024-05-25] MEDS: diphenhydrAMINE 50 mg Capsule PO (06:10)
--- NOTE | 2024-05-25 07:39 | W.PM.OPSFHP ---
Same Day Surgery H&P Indication for Procedure/HPI DATE OF PROCEDURE: May 25, 2024 CHIEF COMPLAINT/INDICATIONFOR SURGICAL PROCEDURE: Chest pain suspicious for unstable angina PREOP DIAGNOSIS: Unstable angina PLANNED PROCEDURE: Left heart cath/PCI if indicated Operation Date: 05/25/24 07:00 Proposed Procedures p Cardiac Catheterization - [facility] w/wo LV & Coros(Left) - Rosales Almaguer MD 73-year-old female past medical history significant hypertension hyperlipidemia tobacco use has continual chest pain which is getting worse in frequency and duration upon mild exertion suspicious for unstable angina despite of optimization of medicine being on beta-florence and ARB . She has negative stress test in the past since she continues to have worsening of symptoms therefore it is suggested that we should proceed with left heart cath/PCI if indicated. Medications/Allergies* Home Medications ?Medication ?Instructions ?Recorded ?Confirmed ?Type lorazepam 1 mg tablet 1 mg PO DAILY PRN Anxiety 08/27/22 05/22/24 History omeprazole 40 mg capsule,delayed 40 mg PO DAILY 08/27/22 05/22/24 History release vitamin E 268 mg (400 unit) capsule 268 mg PO DAILY 08/27/22 05/22/24 History zinc acetate 50 mg (zinc) capsule 50 mg PO DAILY 08/27/22 05/22/24 History magnesium 200 mg tablet 200 mg PO DAILY 11/13/22 05/22/24 History prednisone 1 mg tablet 2 mg PO DAILY 11/07/23 05/22/24 History Allergies/Adverse Reactions Allergy/AdvReac Type Severity Reaction Status Date / Time aspirin Allergy Unknown Verified 05/25/24 06:23 cephapirin (From Cefadyl) Allergy Unknown Verified 05/25/24 06:23 doxycycline Allergy Unknown Verified 05/25/24 06:23 levofloxacin (From Levaquin) Allergy Unknown Verified 05/25/24 06:23 Current Medications: Generic Name Dose Route Start Last Admin Trade Name Freq PRN Reason Stop Dose Admin Sodium Chloride 1,000 mls @ 50 mls/hr 05/25/24 06:00 05/25/24 06:15 Sodium Chloride 0.9% IV 05/26/24 01:59 Not Given .Q20H ONE Pertinent History/Comorbid Conditions* Medical History (Updated 05/06/24 @ 16:35 by MARICRUZ Cotter) Essential hypertension Heart palpitations Social History Smoking and tobacco/nicotine status: current every day tobacco/nicotine user Alcohol intake: never Substance/Drug Use: never Pertinent Exam Findings alert, oriented x 3, clear to auscultation bilaterally, regular rate & rhythm and operative site marked Conscious Sedation Assessment PATIENT ASSESSED PRIOR TO SEDATION, WITH NO CHANGE NOTED: Yes AIRWAY EVAL/ANESTHESIA PLAN: ASA II, Risks, benefits & alternatives of sedation and/or procedure discussed and Patient agrees to continue as planned Recommendations Surgery/Procedure today Other Plans: Patient has been explained all risk-benefit and alternative for the procedure she understand 2% risk of stroke major bleed, 6 point risk of minor bleeding infection hematoma contrast-induced nephropathy vascular injury leading to surgery pseudoaneurysm. She would like to proceed with it. Coding Level of Care Code Acute Code for Angelica Hays
--- NOTE | 2024-05-25 08:15 | SUR.PHASEII ---
Received the patient back from the laboratory geneticist via cot s/p Diagnostic C. Patient drowsy but awakens easily. A & 0 x 3. telemetry monitor placed and vital signs obtained. TR band x 2 intact to the right wrist. No bleeding or hematoma noted. Palpable radial pulse. No other assessment changes noted from pre cath assessment. Family at bedside. No concerns voiced at this time.
--- NOTE | 2024-05-25 09:15 | SUR.PHASEII ---
Letting the air out of the most Proximal TR band per protocol.
--- NOTE | 2024-05-25 10:04 | SUR.PHASEII ---
The proximal TR band is off. No new bleeding or hematoma noted. Previous hematoma soft and marked.
--- NOTE | 2024-05-25 10:15 | SUR.PHASEII ---
Letting the air out of the msot distal TR band per protocol.
--- NOTE | 2024-05-25 11:15 | SUR.PHASEII ---
Most distal TR band off per protocol. Site cleansed with warm water and patted dry. A large band aid was applied to the site and loosely secured with coban. No bleeding or hematoma noted. Bruised site from earlier remains the same. Palpable radial pulse. No other assessment changed noted.
--- NOTE | 2024-05-25 12:10 | SUR.PHASEII ---
Patient discharged home with life partner, Ran, via wheelchair.
== END 2024-05-25 05:40 | disposition home or self-care (01) ==
PROVIDERS: PCP Family Medicine; Visit Provider Internal Medicine Cardiovascular Disease
DX: R07.9 Chest pain, unspecified (principal); I10 Essential (primary) hypertension; E78.5 Hyperlipidemia, unspecified; F17.200 Nicotine dependence, unspecified, uncomplicated
CPT/HCPCS: 36415; 93458; 96374; 99152; 99153; C1769; C1887; C1894; J1644; J2250; J3010; J3490; J7030; Q0163; Q9967

== ENCOUNTER → 2024-06-09 13:48 | Outpatient (BNVA) | payer MEDICARE, OTHER, SELFPAY | PROVIDERS: PCP Family Medicine; Visit Provider Nurse Practitioner Family | DX: R00.2 Palpitations (principal); Z09 Encounter for follow-up examination after completed treatment for conditions other than malignant neoplasm | CPT/HCPCS: 36415; 83735; 84443; 99213 ==

== ENCOUNTER → 2024-12-15 12:39 | Outpatient (BNVA) | payer MEDICARE, OTHER, SELFPAY | PROVIDERS: PCP Family Medicine; Visit Provider Internal Medicine Cardiovascular Disease | DX: I25.118 Atherosclerotic heart disease of native coronary artery with other forms of angina pectoris (principal); I10 Essential (primary) hypertension; I49.3 Ventricular premature depolarization; F17.200 Nicotine dependence, unspecified, uncomplicated | CPT/HCPCS: 99214 ==